=== PATIENT | male | born 1970 ===

== ENCOUNTER 2016-12-29 07:47 | Emergency (ER) | payer MEDICAID ==
[~2016-12-29 07:47] MED LIST: OMEPRAZOLE20 M3 PO
[2016-12-29 07:52] LABS: BASO % 0.2 % (0-2); EOS % 2.3 % (0-7); EOSINOPHIL ABSOLUTE COUNT 0.3 tho/cmm (0.0-0.7); HCT-HEMATOCRIT 45.8 % (36.0-53.5); HGB-HEMOGLOBIN 16.2 gm/dl (13.5-17.0); LYMPH % 28.1 % (20-45); LYMPH ABSOLUTE COUNT 3.1 tho/cmm (0.8-4.5); MCH (MEAN CORPUSCULAR HGB) 30.2 pg (28.0-32.0); MCHC MEAN CORPUSCULAR HGB CONC 35.4 % (32.0-36.0); MCV (MEAN CELL VOLUME) 85.3 fl (82.0-96.0); MEAN PLATELET VOLUME 10.5 cmc (9.4-12.4); MONO % 8.1 % (0-12); MONOCYTE ABSOLUTE COUNT 0.9 tho/cmm (0.0-1.2); NEUTROPHIL ABSOLUTE COUNT 6.8 tho/cmm (1.6-8.0); NEUTROPHIL-AUTOMATED 6.8 tho/cmm (1.6-8.0); NEUTROPHILS % 61.3 % (40-80); PLATELET COUNT 216 tho/cmm (150-450); RED BLOOD COUNT 5.37 mil/cmm (4.40-5.70); RED CELL DISTRIBUTION WIDTH 12.5 % (12.4-16.4); WHITE BLOOD COUNT 11.2 tho/cmm (4.0-10.0)
[2016-12-29 07:54] LABS: ALBUMIN 4.3 g/dl (3.5-5.0); ALKALINE PHOSPHATASE 71 U/L (33-138); ALT/SGPT 39 U/L (12-78); ANION GAP 12 mmol/L (0-20); AST/SGOT 25 U/L (10-40); BILIRUBIN,TOTAL 0.9 mg/dl (0.0-1.5); BLOOD UREA NITROGEN 9 mg/dl (6-24); CALCIUM 9.2 mg/dl (8.5-10.5); CARBON DIOXIDE-VENOUS 25 mmol/L (22-32); CHLORIDE 104 mmol/l (96-110); CREATININE 1.04 mg/dl (0.60-1.30); GLUCOSE 106 mg/dL (70-110); POTASSIUM 3.6 mmol/L (3.7-5.1); SODIUM 137 mmol/L (135-145); eGFR VALUE FOR BLACK >90 mL/Min
[2016-12-29 08:06] LABS: URINE BILIRUBIN NEGATIVE (NEG); URINE BLOOD LARGE (NEG); URINE GLUCOSE (UA) NEGATIVE (NEG); URINE KETONE SMALL (NEG); URINE LEUKOCYTE ESTERASE NEGATIVE (NEG); URINE NITRITE NEGATIVE (NEG); URINE PROTEIN MODERATE (NEG); URINE SPECIFIC GRAVITY 1.015 (1.003-1.030)
[2016-12-29 08:07] LABS: URINE APPEARANCE CLEAR; URINE COLOR STRAW
[2016-12-29 08:24] LABS: URINE EPITHELIAL CELLS 0 /[HPF] (0-10); URINE WBC 0-1 /[HPF] (0-5)
[2016-12-29] MEDS ORDERED: NORCO 5-325 TA1 EACH PO (09:49)
[2016-12-29] MEDS ORDERED: IBUPROFEN600 M1 PO (09:49)
== END 2016-12-29 10:17 ==
LOC: EDMED 07:47
PROVIDERS: Emergency Medicine
DX: E86.0 Dehydration (principal); R10.31 Right lower quadrant pain; K21.9 Gastro-esophageal reflux disease without esophagitis; Z79.899 Other long term (current) drug therapy; F17.200 Nicotine dependence, unspecified, uncomplicated
CPT/HCPCS: J1170; J1885; J2405; J7030; Q9967